=== PATIENT | male | born 1955 | race Caucasian/White ===

== ENCOUNTER → 2016-10-03 | Outpatient (CLI) | payer BC ==
--- NOTE | 2016-10-03 16:44 | KCIC ---
PROCEDURE Renal sonogram. HISTORY Renal insufficiency. TECHNIQUE Sonographic imaging of the kidneys and bladder was performed. COMPARISON 04/06/2016. FINDINGS The right kidney measures 9.8 cm pole to pole and the left kidney measures 10.7 cm pole to pole. There is a 1.5 cm hypoechoic lesion within the mid zone of the right kidney, corresponding with the location of a previously suspected complex cyst. This is not well characterized due to differences in imaging technique. The prevoid bladder volume is 206 cc. The patient was unable to void for the exam. IMPRESSION 1. 1.5 cm hypoechoic lesion within the mid zone of the right kidney, corresponding with the location of a previously suspected complex cyst. This is not well characterized on the current exam due to differences in technique. Short-term followup is recommended to confirm stability. 2. Prevoid bladder volume of 206 cc. The patient was unable to void for the exam. Electronically signed by: Marie Santiago (Oct 03, 2016 16:43:12)
== END | disposition home or self-care (01) ==
LOC: KCIC US 15:29
PROVIDERS: ATTEND Internal Medicine Nephrology
DX: N18.2 Chronic kidney disease, stage 2 (mild) (principal); N28.9 Disorder of kidney and ureter, unspecified
CPT/HCPCS: 76770